=== PATIENT | male | born 1965 | race Caucasian/White ===

== ENCOUNTER 2022-05-11 23:14 | Emergency (ER) | payer BC ==
[~2022-05-11] VITALS: Ht 177.8 cm; Wt 88.0 kg
[2022-05-12] MEDS ORDERED: TETANUS-DIPTH-ACEL PERTUSSIS 0.5ML SYR Tdap IM ONE (00:15)
[2022-05-12 01:02] VITALS: BP 140/82
[2022-05-12] MEDS ORDERED: CEPH-510 PO (01:14)
== END 2022-05-12 01:18 | disposition home or self-care (01) ==
LOC: ER 23:14
DX: S61.431A Puncture wound without foreign body of right hand, initial encounter (principal); W23.0XXA Caught, crushed, jammed, or pinched between moving objects, initial encounter; Y93.89 Activity, other specified; Y92.89 Other specified places as the place of occurrence of the external cause; Y99.8 Other external cause status
CPT/HCPCS: 73130; 90471; 90715